=== PATIENT | male | born 2000 | race Hispanic/Latino ===

== ENCOUNTER 2022-01-07 07:06 | Emergency (ER) | payer OTHER ==
[~2022-01-07] VITALS: Ht 188 cm; Wt 127.0 kg
[2022-01-07 07:23] LABS: BASOPHILS % (AUTO) 0.5 % (0.0-5.0); EOSINOPHILS % (AUTO) 1.5 % (0.0-8.0); HEMATOCRIT 46.2 % (42-54); LYMPHOCYTES % (AUTO) 32.7 % (21.0-51.0); MEAN CORPUSCULAR HEMOGLOBIN 30.7 pg (27.0-33.0); MEAN CORPUSCULAR HGB CONC 35.1 g/dL (32.0-36.0); MEAN CORPUSCULAR VOLUME 87.7 fL (79-99); MONOCYTES % (AUTO) 11.1 % (3.0-13.0); NEUTROPHILS % (AUTO) 53.8 % (40.0-77.0); PLATELET COUNT (AUTO) 263 K/uL (130-400); RED BLOOD CELL COUNT(AUTO) 5.27 MIL/uL (4.50-6.20); WHITE BLOOD COUNT (AUTO) 12.6 K/uL (4.8-10.8)
[2022-01-07] MEDS ORDERED: PROMETHAZINE HCL 25 MG/ML 1ML AMPULE IM ONE (07:30)
[2022-01-07] MEDS ORDERED: ONDANSETRON 4MG INJ IVP ONE (07:30)
[2022-01-07] MEDS ORDERED: MORPHINE 4 MG SYG IVP ONE (07:30)
[2022-01-07] MEDS ORDERED: PROMETHAZINE HCL 25 MG/ML 1ML AMPULE ONE (07:31)
[2022-01-07 07:39] LABS: ALBUMIN 3.8 g/dL (3.5-5.0); CREATININE 0.9 mg/dL (0.5-1.5); POTASSIUM 3.5 mmol/L (3.5-5.1); TOTAL PROTEIN, SERUM 7.8 g/dL (6.0-8.3)
[2022-01-07 08:32] LABS: AMYLASE 83 U/L (25-115); LIPASE 69 U/L (114-286)
[2022-01-07 08:51] LABS: APPEARANCE,URINE CLOUDY (CLEAR); BILIRUBIN,URINE SMALL mg/dL (NEGATIVE); COLOR,URINE AMBER (YELLOW); GLUCOSE, URINE (UA) NEGATIVE (NEGATIVE); KETONES,URINE 5 mg/dL (NEGATIVE); LEUKOCYTE ESTERASE ,URINE NEGATIVE Leu/uL (NEGATIVE); NITRATE,URINE NEGATIVE (NEGATIVE); OCCULT BLOOD,URINE LARGE (NEGATIVE); PH,URINE 7.5 (5.0-8.0); PROTEIN,URINE 30 mg/dL (NEGATIVE)
[2022-01-07 08:54] LABS: BACTERIA,URINE Few /HPF (None Seen); RBC,URINE TNTC /HPF (0-1); SQUAMOUS EPITHELIAL CELL,UR Rare /HPF (0-2)
[2022-01-07] MEDS ORDERED: KETOROLAC 30MG VIAL (30MG/ML) IVP ONE (09:30)
[2022-01-07] MEDS ORDERED: TAMSULOSIN HCL 0.4 MG CAP.ER.24H PO SCH (10:00)
[2022-01-07] MEDS ORDERED: 0.9%NACL 1000ML 1,000 ML IV ONE (10:00)
[2022-01-07] MEDS ORDERED: MORPHINE 4 MG SYG IM ONE (13:00)
[2022-01-07] MEDS ORDERED: ONDA4TAB10 PO (13:20)
[2022-01-07] MEDS ORDERED: IBUP-2077 PO (13:20)
[2022-01-07] MEDS ORDERED: ACET-2079 PO (13:20)
[2022-01-07] MEDS ORDERED: TAMS-1 PO (13:20)
[2022-01-07 13:30] VITALS: BP 132/78
== END 2022-01-07 13:30 | disposition home or self-care (01) ==
LOC: EDBD 07:06 → EDH 07:06
DX: N20.1 Calculus of ureter (principal)
CPT/HCPCS: 99285; 74176; 96374; 96361; 96375; 82150; 80053; 83690; 85025; 87088; 81001; 36415; 96372 ×2; J7030; J2550; J2270 ×2; J1885